=== PATIENT | male | born 1950 | race Caucasian/White ===

== ENCOUNTER 2019-04-05 09:33 | Inpatient (IN) | payer OTHER ==
[~2019-04-05] VITALS: Ht 172.7 cm; Wt 79.4 kg
--- NOTE | 2019-04-05 09:54 | NUR ---
PT ARRIVES WITH DYSPNEA WITH 02 SAT ON R.A. MID 80'2. PLACED ON 2L NC AND NOW 92%. PT HAS HX OF COPD. TOLERATING WELL AT THIS TIME. LUNGS HAVE INS AND EXP WHEEZING ON RIGHT SIDE AND EXP WHEEZING ON LEFT SIDE. PT TALKING IN SHORT SENTENCES. TOLERATING BETTER WHEN PLACED ON 02. DENIES CHEST PAIN OR PRESSURE. CLAIMS HE HAS PRODUCTIVE COUGH BUT UNKNOWN COLOR DUE TO SWALLOWING IT. PT IS ALERT AND ORIENTED WITH HR AT 121 UPON ARRIVAL. PT DENIES RECENT FEVER AND CLAIMS HE HAD SOB RECENTLY AND SEEN AT URGENT CARE, GIVEN A BREATHING TX WITH RESOLVE AND SENT HOME. AWAITING MD KOCH
--- NOTE | 2019-04-05 09:57 | NUR ---
ABG PERFORMED BY Fady AT BEDSIDE
[2019-04-05 10:11] LABS: BASOPHIL % 0 % (0-2); PLATELET COUNT 239 x10^3mcL (130-400); RED CELL DISTRIBUTION WIDTH 15.6 % (11.5-14.5)
--- NOTE | 2019-04-05 10:22 | NUR ---
DR HERRERA AT BEDSIDE FOR EVAL
--- NOTE | 2019-04-05 10:32 | NUR ---
Fady AT BEDSIDE FOR BREATHING TX
[2019-04-05 10:37] LABS: CALCIUM 9.1 mg/dL (8.5-10.1); CARBON DIOXIDE 22.9 mmol/L (21-32); POTASSIUM SERUM 4.8 mmol/L (3.5-5.1)
[2019-04-05 10:49] LABS: ALBUMIN 3.4 g/dL (3.4-5.0); BILIRUBIN TOTAL 0.6 mg/dL (0.20-1.00); TOTAL PROTEIN, SERUM 7.6 g/dL (6.4-8.2)
[2019-04-05] MEDS ORDERED: ASPIR 8181 MG PO (11:20)
[2019-04-05] MEDS ORDERED: NEU300 PO (11:20)
[2019-04-05] MEDS ORDERED: PROTONIX20 MG PO (11:21)
[2019-04-05] MEDS ORDERED: GLIPIZIDE2.5 M1 PO (11:21)
[2019-04-05] MEDS ORDERED: COR6 PO (11:21)
[2019-04-05] MEDS ORDERED: CLOPIDOGREL75 M1 PO (11:21)
[2019-04-05] MEDS ORDERED: LIPITOR80 MG PO (11:22)
--- NOTE | 2019-04-05 11:22 | NUR ---
BREATHING TX BY R.T. AT THIS TIME. PT TOLERATING WELL
--- NOTE | 2019-04-05 12:29 | NUR ---
REPORT GIVEN TO VIDA CALI RN
--- NOTE | 2019-04-05 14:15 | NUR ---
[facility] ACCOMPANIED BY RN AND TRANSPORTER. PT A/A/O X 4, CALM, COOPERATIVE. AMBULATORY, NO GAIT OR BALANCE IMPAIRMENT NOTED WHEN WALKING FROM [place] TO BED. ON TELE # 7, HR 104, ST, DENIES CHEST PAIN OR DISCOMFORT AT THIS TIME. LUNGS CTAB, CHEST RISING EVENLY, 2LNC, 95%, NO ACUTE RESPIRATORY DISTRESS NOTED. PT IS EDENTULOUS. IV SITE RAC 20G, CDI. ORIENTED PT TO ROOM, BED CONTROLS, CALL LIGHT SYSTEM. SIDE RAILS UP X 2, BED IN LOW POSITION. WILL CONTINUE TO MONITOR.
--- NOTE | 2019-04-05 15:15 | NUR ---
PT REFUSED LISINOPRIL D/T HIS PCP DC'D MED D/T HIS NORMAL BP READINGS; WILL NOTIFY DR RACHEL.
[2019-04-05 15:55] VITALS: BP 120/71
--- NOTE | 2019-04-05 16:54 | NUR ---
PAGED DR RACHEL RE: INCREASING TROPONIN LEVEL.
--- NOTE | 2019-04-05 17:40 | NUR ---
PT IN BED, WATCHING TV, WAITING FOR DINNER TO COME IN. PT STATES HE'S REALLY HUNGRY. ORIENTED X 4, CALM, COOPERATIVE. NO ACUTE RESPIRATORY DISTRESS, PAIN, OR DISCOMFORT NOTED. REMAINS ON 2LNC, IV SITE PATENT. SIDE RAILS UP X 2, BED IN LOW POSITION. WILL CONTINUE TO MONITOR.
--- NOTE | 2019-04-05 17:54 | NUR ---
DR RACHEL CALLED BACK; REPORTED INCREASED TROPONIN OF 0.214; GAVE ORDER FOR 3RD TROPONIN AT 2200; ORDER NOTED AND CARRIED OUT.
[2019-04-05 18:18] VITALS: BP 107/66
--- NOTE | 2019-04-05 19:40 | NUR ---
PT SITTING IN BED, WATCHING TV, LAUGHING. PT REMAINS A/A/O X 4, CALM, COOPERATIVE. ON TELE # 7, CONVERTED TO NSR IN THE MID-90'S, DENIES CHEST PAIN OR DISCOMFORT AT THIS TIME. REMAINS ON 2LNC, LUNGS CTAB, CHEST RISING EVENLY, 95%, NO ACUTE RESPIRATORY DISTRESS NOTED. IV SITE PATENT, NO S/S INFECTION OR BLEEDING. SIDE RAILS UP X 2, BED IN LOW POSITION, CALL LIGHT WITHIN REACH. WILL CONTINUE TO MONITOR.
[2019-04-05 20:43] VITALS: BP 105/72
--- NOTE | 2019-04-05 21:30 | NUR ---
RECEIVED PT FROM VIRAJ-MARNIE, PT ASLEEP BUT EASILY AROUSABLE, BREATHING EVEN AND UNLABORED ON O2 2L VIA NC, NO RESP OR SOB DISTRESS NOTED, ALL DUE MEDS GIVEN, NO DISTRESS NOTED, WILL KEEP TO MONITOR.
--- NOTE | 2019-04-05 23:40 | NUR ---
CRITICAL RESULT RECEIVED FOR PT'S TROP-0.205, DR DE SANTIAGO MADE AWARE. NO NEW ORDER RECEIVE AT THIS TIME.
[2019-04-06 05:49] VITALS: BP 100/73
--- NOTE | 2019-04-06 06:18 | NUR ---
PT ASLEEP BUT EASILY AROUSABLE, SLEPT MOST OF NIGHT, SL TO RAC, BREATHING EVEN AND UNLABORED ON O2 2L VIA NC, MILD SOB ON EXERTION, RT PROTOCOL, ON TELE#7 ST, NO DISTRESS NOTED, WILL KEEP TO MONITOR.
[2019-04-06 06:29] LABS: PLATELET COUNT 217 x10^3mcL (130-400)
[2019-04-06 06:41] LABS: CALCIUM 8.8 mg/dL (8.5-10.1); CARBON DIOXIDE 24.4 mmol/L (21-32); CREATININE SERUM 2.6 mg/dL (0.7-1.3); POTASSIUM SERUM 4.9 mmol/L (3.5-5.1)
[2019-04-06 06:51] LABS: BASOPHIL % 0 % (0-2); RED CELL DISTRIBUTION WIDTH 15.9 % (11.5-14.5)
--- NOTE | 2019-04-06 07:16 | NUR ---
BEDSIDE HANDOFF REPORT GIVEN TO TAHIRA, ALL QUESTIONS ANSWERED AND CONCERNS ADDRESSED.
--- NOTE | 2019-04-06 08:00 | NUR ---
RECEIVED PATIENT A/A/OX4; TELE#7; ST; HR = 110; DENIED CHEST PAIN. JASMYNE SOUND CLEAR, BUT DIMINISHED TO LLL. NO SOB. DRY COUGHING NOTED. RT PROTOCOL. FINISHED 100% OF [facility] DIET BREAKFAST. HAD BM THIS AM. IVHL'D TO RAC. PATIENT AMBULATORY, CALL LIGHT IN REACH.
[2019-04-06 09:44] VITALS: BP 103/73
[2019-04-06 09:47] VITALS: BP 103/73
[2019-04-06 13:11] VITALS: BP 105/81
--- NOTE | 2019-04-06 14:00 | NUR ---
DR. NEAL AND DR. AGUIRRE SAW PATIENT. NEW ORDERS CARRIED OUT.
[2019-04-06 15:18] LABS: UA SPECIFIC GRAVITY 1.025 (1.005-1.035); microscopic required? YES; urine erythrocyte 3+ (NEGATIVE)
--- NOTE | 2019-04-06 15:27 | NUR ---
CARDIAC ECHO DONE. POSSIBLE EF 25%. DR. NEAL NOTIFIED BY MANAGER REGULATORY.
[2019-04-06 18:19] VITALS: BP 118/94
--- NOTE | 2019-04-06 18:34 | NUR ---
PATIENT FINISHED 100% OF [place]. SLEEPING NOW. SLIGHT LABORED BREATHING. IVHL'D PER ORDER.
--- NOTE | 2019-04-06 19:15 | NUR ---
REPORT RECEIVED FROM DAY SHIFT RN. PATIENT WAS SEEN AND IS RESTING COMFORTABLY IN BED. BREATHING EVEN AND UNLABORED ON ROOM AIR. NO SOB OR RESP DISTRESS NOTED. PATIENT STATES "MY BREATHING IS MUCH BETTER NOW. IT USED TO BE LABORED, BUT NOW IT'S NOT. I DON'T NEED OXYGEN RN". EDUCATED PATIENT TO KEEP HOB ELEVATED TO OPEN UP HIS AIRWAYS AND PATIENT STATES HE DOES THAT ALREADY AND IT HAS BEEN HELPING HIS BREATHING. DENIES CHEST PAIN. TELE #7 SINUS TACH. NO C/O PAIN. IV TO THE RAC, SALINE LOCK. PATENT AND INTACT. NO REDNESS OR SWELLING NOTED. COMFORT AND SAFETY MEASURES IN PLACE. BED IS LOCKED AND IN THE LOWEST POSITION. SIDE RAILS UP X2. CALL LIGHT IS WITHIN REACH. WILL CONTINUE TO MONITOR.
[2019-04-06 21:03] VITALS: BP 115/81
--- NOTE | 2019-04-07 00:19 | NUR ---
PATIENT IS RESTING IN BED WITH EYES CLOSED. NO DISTRESS NOTED. BREATHING EVEN AND UNLABORED ON ROOM AIR. NO S/S OF PAIN NOTED. IV SALINE LOCK. SAFETY MEASURES IN PLACE. CALL LIGHT IS WITHIN REACH. WILL CONTINUE TO MONITOR.
--- NOTE | 2019-04-07 02:17 | NUR ---
TELE MONITOR REPORTED THAT HR WENT UP TO 120. PATIENT IS SITTING ON BEDSIDE CHAIR. DENIES CHEST PAIN. PATIENT STATES HIS BREATHING IS "OKAY". ASKED PATIENT IF HE WANTS A BREATHING TREATMENT AND PATIENT STATES HE DOES. PATIENT STATES HE DID NOT RECEIVING PATIENT TREATMENT EARLIER BECAUSE HE FELT LIKE HE DIDN'T NEED IT. RT CALLED AND WILL PROVIDE PATIENT WITH A BREATHING TREATMENT. NO RESP DISTRESS OR SOB NOTED. DENIES PAIN AT THIS TIME. IV SALINE LOCKED. SAFETY MEASURES IN PLACE. CALL LIGHT IS WITHIN REACH. WILL CONTINUE TO MONITOR.
--- NOTE | 2019-04-07 02:53 | NUR ---
HR AT 103. NO DISTRESS NOTED. BREATHING EVEN AND UNLABORED. NO SOB OR RESP DISTRESS NOTED. SAFETY MEASURES IN PLACE. WILL CONTINUE TO MONITOR.
[2019-04-07 05:16] VITALS: BP 123/98
--- NOTE | 2019-04-07 05:16 | NUR ---
PATIENT IS RESTING IN BED WITH EYES CLOSED AT THIS TIME. NO ACUTE CHANGES NOTED. BREATHING EVEN AND UNLABORED ON ROOM AIR. NO SOB OR RESP DISTRESS NOTED. NO C/O PAIN THROUGHOUT THE NIGHT OR CHEST PAIN/PRESSURE. IV TO THE RAC. SALINE LOCK. PATENT AND INTACT. NO REDNESS OR SWELLING NOTED. SAFETY MEASURES IN PLACE. BED IS LOCKED AND IN THE LOWEST POSITION. SIDE RAILS UP X2. CALL LIGHT IS WITHIN REACH. WILL CONTINUE TO MONITOR.
[2019-04-07 06:35] LABS: PLATELET COUNT 232 x10^3mcL (130-400)
[2019-04-07 06:49] LABS: BASOPHIL % 0 % (0-2); RED CELL DISTRIBUTION WIDTH 15.9 % (11.5-14.5)
--- NOTE | 2019-04-07 08:00 | NUR ---
SHIFT ASSESSMENT DONE. PATIENT A/A/OX4; NO RESP DSITRESS ON RA. BREATHING SOUND CLEAR EARNEST. O2 SAT 98% ON RA. RT PROTOCOL. TELE #7; SR; HR = 111. DENIED CHEST PAIN. TOLERATED CCHO DIET BREAKFAST. NO N/V. HAD BM THIS AM. IVHL'D TO RAC. AMBULATORY. CALL LIGHT IN REACH.
[2019-04-07 09:54] VITALS: BP 120/83
[2019-04-07 10:25] LABS: CALCIUM 8.7 mg/dL (8.5-10.1); CARBON DIOXIDE 18.5 mmol/L (21-32); CREATININE SERUM 2.5 mg/dL (0.7-1.3); POTASSIUM SERUM 4.8 mmol/L (3.5-5.1)
[2019-04-07 12:54] VITALS: BP 119/93
[2019-04-07 18:28] VITALS: BP 128/91
--- NOTE | 2019-04-07 19:00 | NUR ---
CONDITION IMPROVING. NO RESP DISTRESS ON RA. DENIED PAIN. VÍCTOR'D. VOID VIA URINAL. BM X2. ENDORSED CARE TO NOC NURSE.
--- NOTE | 2019-04-07 19:10 | NUR ---
RECEIVED PT SITTING UP ON SIDE OD BED, NO ACUTE DISTRESS OBSERVED, DENIES PAIN OR DISCOMFORT AT THIS TIME. BREATHING ON RA, EVEN AND UNLABORED, DENIES SOB OR DYSPNEA, LUNGS CTA, O2 SAT 97% AA/OX4, ABLE TO MAKE NEEDS KNOWN, SPEECH CLEAR AND APPROPRIATE. SINUS TACH TO TELE #7, HR 104, DENIES CP OR PRESSURE. PULSES PRESENT AND EQUAL THROUGHOUT, NO EDEMA NOTED. ABD ROUND AND SOFT WITH ACTIVE BOWEL SOUNDS, NO N/V/D. FREELY VOIDS URINE WITH BRP. AMBULATORY AND ABLE TO REPOSITION SELF IN BED. IV TO RAC IN PLACE, DRY, PATENT, INTACT, S/L AT THIS TIME, NO PAIN, REDNESS OR SWELLING NOTED WHEN FLUSHED WITH NS. COMFORT AND SAFETY MEASURES IN PLACE, ALL NEEDS ASSESSED AND ATTENDED TO. CALL LIGHT WITHIN REACH. WILL CONTINUE TO MONITOR
[2019-04-07 20:34] VITALS: BP 130/82
--- NOTE | 2019-04-07 23:50 | NUR ---
PT LAYING IN BED, BREATHING EVEN AND UNLABORED, NO ACUTE DISTRESS OBSERVED. CALL LIGHT WITHIN REACH. WILL CONTINUE TO MONITOR
--- NOTE | 2019-04-08 05:08 | NUR ---
NO SIGNIFICANT CHANGES TO REPORT, PT COMPLIED WITH NURSING CARE THROUGHOUT THE SHIFT WITH NO ACUTE EVENTS OVERNIGHT. PT TOLERATING WELL ON RA, BREATHING EVEN AND UNLABORED, NO ACUTE DISTRESS OBSERVED. COMFORT AND SAFETY MEASURES MAINTAINED. ALL NEEDS ASSESSED AND ATTENDED TO. CALL LIGHT WITHIN REACH. WILL CONTINUE TO MONITOR AND ENDORSE CARE TO DAY SHIFT NURSE
[2019-04-08 05:37] VITALS: BP 116/86
[2019-04-08 06:47] LABS: PLATELET COUNT 241 x10^3mcL (130-400)
[2019-04-08 06:55] LABS: BASOPHIL % 0 % (0-2); RED CELL DISTRIBUTION WIDTH 15.8 % (11.5-14.5)
[2019-04-08 07:18] LABS: CALCIUM 8.9 mg/dL (8.5-10.1); CREATININE SERUM 2.3 mg/dL (0.7-1.3); POTASSIUM SERUM 5.2 mmol/L (3.5-5.1)
--- NOTE | 2019-04-08 07:49 | NUR ---
RECEIVED PATIENT FROM MARNIE DIAZ. PATIENT RESTING IN BED AT THIS TIME, NO COMPLAINTS. REVIEWED PLAN OF CARE WITH PATIENT FOR TODAY, PATIENT AGREES. WILL CONTINUE TO MONITOR AND WAIT FOR WELLNESS COACH CHANELLE TO SPEAK WITH PATIENT. CALL LIGHT IN REACH AT THIS TIME.
[2019-04-08 08:21] VITALS: BP 125/74
--- NOTE | 2019-04-08 08:49 | NUR ---
PLASTER TENDER CHANELLE IN TO SPEAK WITH PATIENT. STATES PATIENT WILL BE DISCHARGED HOME TODAY. PATIENT UNDERSTANDS. SPOKE WITH PATIENT ABOUT DISCHARGE PROCESS AND PATIENT AGREES. WILL COMPILE DISCHARGE PACKET AND PAPER WORK ONCE COMPLETE BY NIKKIE ROCA. CALL LIGHT IN REACH.
[2019-04-08] MEDS ORDERED: ZIT250 PO (10:19)
[2019-04-08] MEDS ORDERED: PREDNISONE20 MG PO (10:20)
[2019-04-08 11:12] VITALS: BP 125/74
[2019-04-08 11:59] VITALS: BP 108/83
--- NOTE | 2019-04-08 12:51 | NUR ---
DISCHARGE PACKET EXPLAINED AND GIVEN TO PATIENT. ALL QUESTIONS ANSWERED. PRESCRIPTION GIVEN TO PATIENT. DISCHARGE DOCUMENTS SIGNED AND DATED, IV ACCESS REMOVED AND INTACT. TELE MONITOR RETURNED TO [facility]. PATIENT WITH PACKET AND BELONGINGS ESCORTED DOWNSTAIRS VIA WHEELCHAIR WITH LEONA FRIEDMAN.
== END 2019-04-08 12:52 | disposition home or self-care (01) | DRG 280 ==
LOC: ED 09:33 → DU 12:03
PROVIDERS: Internal Medicine Nephrology; ADMIT General Practice
DX: I13.0 Hypertensive heart and chronic kidney disease with heart failure and stage 1 through stage 4 chronic kidney disease, or unspecified chronic kidney disease (principal); J96.21 Acute and chronic respiratory failure with hypoxia; I21.A1 Myocardial infarction type 2; J44.1 Chronic obstructive pulmonary disease with (acute) exacerbation; I50.22 Chronic systolic (congestive) heart failure; E11.21 Type 2 diabetes mellitus with diabetic nephropathy; N18.3 Chronic kidney disease, stage 3 (moderate); E11.22 Type 2 diabetes mellitus with diabetic chronic kidney disease; I25.5 Ischemic cardiomyopathy; K21.9 Gastro-esophageal reflux disease without esophagitis; N40.0 Benign prostatic hyperplasia without lower urinary tract symptoms; I25.10 Atherosclerotic heart disease of native coronary artery without angina pectoris; E78.5 Hyperlipidemia, unspecified; Z87.891 Personal history of nicotine dependence; Z95.5 Presence of coronary angioplasty implant and graft; Z79.84 Long term (current) use of oral hypoglycemic drugs
CPT/HCPCS: 36600; 82962; 83880; G0378; J0456; J1815; J2930; J7030; J7050; J7512; J7613; J7620; J7626; Q0092

== ENCOUNTER 2019-05-14 18:01 | Inpatient (IN) | payer OTHER ==
[~2019-05-14] VITALS: Ht 177.8 cm; Wt 81.6 kg
[~2019-05-14 18:01] MED LIST: ASPIR 8181 MG PO; CLOPIDOGREL75 M1 PO; COR6 PO; GLIPIZIDE2.5 M1 PO; LIPITOR80 MG PO; NEU300 PO; PREDNISONE20 MG PO; PROTONIX20 MG PO; ZIT250 PO
[2019-05-14 18:05] VITALS: Ht 177.8 cm; Wt 81.6 kg
--- NOTE | 2019-05-14 18:10 | NUR ---
PT C/O SOB X2 DAYS PT STS HX COPD AND CHF, PER PT "I ONLY GOT MAILED HALF OF MY COPD MEDS AND THEY HAVEN'T SENT MY BREATHING TREATMENT YET" PT DENIES SMOKING STATING "I QUIT 2 MONTHS AGO" PT DENIES ANY FEVER AND CHILLS AT THIS TIME AND/OR CHEST PAIN, PT AAOX4, RESPS EVEN BUT LABORED, PT ABLE TO SPEAK 3-4 WORDS AT A TIME, PT ABLE TO SPEAK 3-4 SENTENCES, INCREASED EXPIRATORY BREATHING NOTED, SKIN PINK DRY AND WARM, MILD SWELLING TO BLE NOTED. PT GOWNED AND PLACED ON FULL CM, SINUS TACYCARDIA, AWAITING MSE.
--- NOTE | 2019-05-14 18:10 | NUR ---
RT CALLED TO BEDSIDE
--- NOTE | 2019-05-14 19:10 | NUR ---
REPORT GIVEN TO RADHA CARLSON RN WHO IS RESUMING CARE OF PT AT THIS TIME
--- NOTE | 2019-05-14 19:11 | NUR ---
RECEIVED REPORT FROM BRENT JACOB RN, I WILL BE ASSUMING FURTHER CARE OF THIS PATIENT.
--- NOTE | 2019-05-14 19:15 | NUR ---
RT AT BEDSIDE. BREATHING TREATMENT IN PROGRESS. PT ON BIPAP. NO DISTRESS NOTED, RESP E/U AT THIS TIME, SKIN IS PINK WARM AND DRY. PT ON FULL CM, SINUS TACHYCARDIA, MD AWARE. WILL CONT TO MONITOR.
--- NOTE | 2019-05-14 19:49 | NUR ---
EMT AT BEDSIDE FOR EKG
[2019-05-14 19:54] LABS: BILIRUBIN TOTAL 0.6 mg/dL (0.20-1.00); CALCIUM 8.1 mg/dL (8.5-10.1); CARBON DIOXIDE 22.6 mmol/L (21-32); CREATININE SERUM 2.3 mg/dL (0.7-1.3); POTASSIUM SERUM 4.7 mmol/L (3.5-5.1)
[2019-05-14 19:59] LABS: ALBUMIN 3.1 g/dL (3.4-5.0)
[2019-05-14 20:01] LABS: BASOPHIL % 0.2 % (0-2); PLATELET COUNT 185 x10^3mcL (130-400)
[2019-05-14 20:11] LABS: RED CELL DISTRIBUTION WIDTH 15.6 % (11.5-14.5)
--- NOTE | 2019-05-14 21:25 | NUR ---
RT AT BEDSIDE PLACING PT ON 3L O2 VIA NC
--- NOTE | 2019-05-14 21:30 | NUR ---
MEDICATED PT PER MD ORDERS, SEE EMAR, PT VERBALIZED UNDERSTANDING OF MEDICATION TEACHING. WILL CONT TO MONITOR.
--- NOTE | 2019-05-14 21:35 | NUR ---
PT GIVEN SANDWICH, PUDDING AND WATER TO DRINK PER OPT REQUEST. OK PER .
--- NOTE | 2019-05-14 21:50 | NUR ---
PT ATE 100% OF FOOD OFFERED AND 90ML WATER.
[2019-05-14] MEDS ORDERED: PROTONIX40 MG PO (22:16)
--- NOTE | 2019-05-14 22:30 | NUR ---
GAVE REPORT TO MYRIAM DYE ON TELE UNIT, WHO WILL ASSUME FURHTER CARE OF THIS PATIENT.
[2019-05-14 22:37] LABS: CHOLESTEROL/HDL RATIO 4.5
[2019-05-14 23:11] LABS: microscopic required? YES; urine erythrocyte 2+ (NEGATIVE)
[2019-05-14 23:27] LABS: AMPHETAMINE QUAL UR POSITIVE (See below)
[2019-05-14 23:45] VITALS: BP 119/73
[2019-05-14 23:54] VITALS: BP 119/73
--- NOTE | 2019-05-15 00:06 | NUR ---
RECEIVED PT FROM ER, PT ADMIT FOR HEART FAILURE, COPD EXCERBATION, PT IS A/O X4, VERBAL RESPONSIVE, ABLE TO TELL WHAT HE NEEDS. LUNG SOUND CLEAR EARNEST, DENY ANY SOB AT THIS MOMENT, PT IS ON 3L/MIN O2 VIA NC. PO2 96, PT IS ON TELE 8, ST, DENY ANY CHEST PAIN OR DISCOMFORT, BOWEL SOUND PRESENT ALL 4 QUADRANTS, NO DISTENTION, NO TENDER. PEDAL PULSE PRESENT BOTH FEET, +1 EDEMA BLE NOTED. IV AT RIGHT AC, NO LEAKING,NO INFILTRAITON. ALL ADLS ASSIST, ALL NEED MET, CALL LIGHT IN REACH, WILL CONTINUE TO MONITOR.
--- NOTE | 2019-05-15 00:45 | NUR ---
PT AWAKE, DOESNT WANT TO WEAR HOSP GOWN OFFERED TO TURN AIRCON UP BUT HE STATED HIS FINE, NO DISTRESS, DR DE SANTIAGO MADE AWARE PT FELT BLOATED AND HAVING CONSTIPATION, HAS BM X1 BUT JUST A SMALL AMT, AWAITING FOR ORDERS.
[2019-05-15 05:45] VITALS: BP 110/78
--- NOTE | 2019-05-15 07:15 | NUR ---
PNEUMOVACCINE ADMIN @ LT ARM, PT SLEPT WELL DURING THE SHIFT, NO DISTRESS, DENIES PAIN OR DISCOMFORTS, SR IN THE MONITOR, WILL ENDORSE TO INCOMING SHIFT FOR F/U CARE.
--- NOTE | 2019-05-15 07:35 | NUR ---
PATIENT A/OX4 ABLE TO MAKE NEEDS KNOWN AND FOLLOW COMMANDS. DENIES HEADACHE OR CHEST PAIN. LUNGS CTA, NO RESP DISTRESS ON 3L NC, OCC DRY COUGH NOTED. BOWEL SOUNDS ACTIVE, ABD DISTENTION/BLOATING NOTED. VOIDS FREELY TO URINAL. IV SITE WNL, DENIES PAIN OR DISCOMFORT. CALL LIGHT WITHIN REACH. WILL CONT TO MONITOR.
--- NOTE | 2019-05-15 07:35 | NUR ---
PATIENT A/OX4 ABLE TO MAKE NEEDS KNOWN AND FOLLOW COMMANDS. DENIES HEADACHE OR CHEST PAIN. LUNGS CTA, NO RESP DISTRESS ON RA, OCC DRY COUGH NOTED. BOWEL SOUNDS ACTIVE, ABD DISTENTION/BLOATING NOTED. VOIDS FREELY TO URINAL. IV SITE WNL, DENIES PAIN OR DISCOMFORT. CALL LIGHT WITHIN REACH. WILL CONT TO MONITOR.
[2019-05-15 08:50] LABS: BASOPHIL % 0.1 % (0-2); PLATELET COUNT 204 x10^3mcL (130-400)
[2019-05-15 08:51] LABS: RED CELL DISTRIBUTION WIDTH 15.4 % (11.5-14.5)
[2019-05-15 09:04] LABS: CALCIUM 8.8 mg/dL (8.5-10.1); CARBON DIOXIDE 24.1 mmol/L (21-32); CREATININE SERUM 2.6 mg/dL (0.7-1.3); MAGNESIUM 2.3 mg/dL (1.8-2.4); POTASSIUM SERUM 4.2 mmol/L (3.5-5.1)
[2019-05-15 09:23] VITALS: BP 117/69
[2019-05-15 13:06] VITALS: BP 99/72
--- NOTE | 2019-05-15 15:32 | NUR ---
PATIENT TOLERATING RA, O2 SAT 96%. WILL CONT TO MONITOR AND ADVISED PATIENT TO USE CALL LIGHT IF FEELING SOB.
[2019-05-15 17:13] VITALS: BP 102/73
--- NOTE | 2019-05-15 19:34 | NUR ---
RECIEVED PATIENT AT START OF SHIFT A/O X4. ON TELE 8, NSR 85. NO SOB ON RA. LUNGS CTAB. DENIES PAIN. ABDOMEN IS FIRM AND DISTENDED. BS HYPERACTIVE. FLUID RESTRICTION IN PLACE <1200/DAY. NO EDEMA NOTED TO EXTREMETIES. IV TO RAC IS SALINE LOCKED AND PATENT. CALL LIGHT AND BEDSIDE TABLE WITHIN REACH.
[2019-05-15 20:51] VITALS: BP 93/62
--- NOTE | 2019-05-16 01:00 | NUR ---
PATIENT'S EYES ARE CLOSED, BREATHS EVEN AND REGULAR. TELE 8 NSR 84. CALL LIGHT AND BEDSIDE TABLE WITHIN REACH.
[2019-05-16 05:03] VITALS: BP 103/78
--- NOTE | 2019-05-16 06:33 | NUR ---
PATIENT IS AWAKE. NO SOB ON RA. DENIES PAIN. STATES HE STILL HAS NOT HAD A BM DESPITE THE [place] AND [place]. ABDOMEN STILL FIRM AND DISTENDED. IV TO RAC SALINE LOCKED. BED LOCKED AND IN LOWEST POSIITON. CALL LIGHT AND BEDSIDE TABLE WITHIN REACH.WILL ENDORSE CARE TO DAYSHIFT.
[2019-05-16 06:35] LABS: CALCIUM 8.7 mg/dL (8.5-10.1); CREATININE SERUM 2.7 mg/dL (0.7-1.3); MAGNESIUM 2.5 mg/dL (1.8-2.4); PHOSPHOROUS 4.3 mg/dL (2.5-4.9); POTASSIUM SERUM 4.5 mmol/L (3.5-5.1)
--- NOTE | 2019-05-16 07:20 | NUR ---
RECEIVED PT FROM MEGGAN DE JESUS. PT AA/OX4 LAYING IN BED RESTING. EASILY AROUSABLE TO VERBAL STIMULI. FACE SYMMETRICAL. SPEECH CLEAR. NO TAYLOR. NO DIZZINESS. DENIES SOB ON ROOM AIR. DENIES CHEST PAIN. COMPLAINT OF ABDOMINAL EDEMA, ABD. HARD, ROUND, DISTENDED. PT REPORTS PASSING GAS THIS AM. REPORTS CONSTIPATION. DENIES N/V. NO SWELLING NOTED BUE/BLE. PULSES +2 BUE/BLE. NORMAL SINUS TACH ON TELE 8, HR 102. IV WNL TO RAC, PATENT AND FLUSHES WELL. PT CALM/COOPERATIVE. INSTRUCTED TO USE CALL LIGHT TO CALL FOR ASSISTANCE PRN. VERBALIZED UNDERSTANDING. BED IN LOW POSITION. CALL LIGHT WITHIN REACH. WILL CONTINUE TO MONITOR.
[2019-05-16 08:00] LABS: BASOPHIL % 0.3 % (0-2); PLATELET COUNT 194 x10^3mcL (130-400); RED CELL DISTRIBUTION WIDTH 15.6 % (11.5-14.5)
[2019-05-16 08:43] VITALS: BP 106/70
--- NOTE | 2019-05-16 10:47 | NUR ---
PT COMPLAINT OF CHEST PAIN, LEFT SIDE, NON-RADIATING, NON-REPRODUCIBLE. DESCRIBES PRESSURE. NSR ON TELE. DENIES SOB ON ROOM AIR. RATES PAIN 12/22, CLINICAL TECHNOLOGIST CARMEN MADE AWARE, ONLY PAIN MEDICATION AVAILABLE TYLENOL, PT DECLINED TO TYLENOL, CLINICAL TECHNOLOGIST AWARE. RECEIVED TELEPHONE ORDER FOR STAT EKG PER NIKKIE LARKIN. ORDER ENTERED. WILL CONTINUE TO MONITOR CLOSELY.
--- NOTE | 2019-05-16 10:51 | NUR ---
PT REPOSITIONED SELF TO LEFT SIDE, REPORTS PAIN DECREASING, REPORTS PAIN MORE TOLERABLE AT THIS TIME. NSR/SINUS TACH ON TELE. HR RANGES BETWEEN 90-102
[2019-05-16 11:53] VITALS: BP 94/68
--- NOTE | 2019-05-16 12:17 | NUR ---
PT SITTING UP IN BED EATING LUNCH. DENIES CHEST PAIN AT THIS TIME. NO SOB ON ROOM AIR. NO S/S OF ACUTE DISTRESS. CALM/COOPERATIVE. IV WNL TO RAC, PATENT AND FLUSHES WELL. SALINE LOCKED. AA/OX4. BED IN LOW POSITION. CALL LIGHT WITHIN REACH. WILL CONTINUE TO MONITOR.
--- NOTE | 2019-05-16 17:04 | NUR ---
PT LEFT AMA VOLUNTARILY WITHOUT BEING SEEN BY A PHYSICIAN. BATTERY REPAIRER CARMEN AWARE. PT AGITATED, WANTS TO GO HOME. IV REMOVED FROM RAC, CATHETER IN TACT. PRESSURE APPLIED. RENEWABLE ENERGY BROKERMARNIE FERNANDO. PT ESCORTED TO LOBBY BY MACHELLE LUZ. PT AMBULATORY WITH FULL ROM, GAIT STEADY. NO S/S OF ACUTE DISTRESS. NO SOB ON ROOM AIR. DENIES CHEST PAIN. AWAKE, ALERT, ORIENTED X4. NO S/S OF ACUTE DISTRESS. EDUCATED PT TO FOLLOW UP WITH ENVIRONMENTAL SERVICES PROJECT MANAGER, PURPOSE OF MEDICATIONS. PT VERBALIZED UNDERSTANDING. AGREED TO FOLLOW UP WITH ENVIRONMENTAL SERVICES PROJECT MANAGER. NO TAYLOR. NO DIZZINESS. NO N/V. BELONGINGS WITH PATIENT.
== END 2019-05-16 17:00 | disposition left against medical advice (07) | DRG 291 ==
LOC: ED 18:01 → DU 21:51 → MU 05-16 14:37
PROVIDERS: Emergency Medicine; ADMIT Internal Medicine
DX: I13.0 Hypertensive heart and chronic kidney disease with heart failure and stage 1 through stage 4 chronic kidney disease, or unspecified chronic kidney disease (principal); I50.23 Acute on chronic systolic (congestive) heart failure; J96.01 Acute respiratory failure with hypoxia; J80 Acute respiratory distress syndrome; N17.0 Acute kidney failure with tubular necrosis; E44.0 Moderate protein-calorie malnutrition; I42.9 Cardiomyopathy, unspecified; F15.10 Other stimulant abuse, uncomplicated; F12.10 Cannabis abuse, uncomplicated; I27.20 Pulmonary hypertension, unspecified; I34.0 Nonrheumatic mitral (valve) insufficiency; N18.9 Chronic kidney disease, unspecified; E11.22 Type 2 diabetes mellitus with diabetic chronic kidney disease; E11.65 Type 2 diabetes mellitus with hyperglycemia; E83.51 Hypocalcemia; I25.10 Atherosclerotic heart disease of native coronary artery without angina pectoris; E78.5 Hyperlipidemia, unspecified; J44.9 Chronic obstructive pulmonary disease, unspecified; N40.0 Benign prostatic hyperplasia without lower urinary tract symptoms; D64.9 Anemia, unspecified; Z68.24 Body mass index [BMI] 24.0-24.9, adult; Z71.51 Drug abuse counseling and surveillance of drug abuser; Z87.891 Personal history of nicotine dependence
CPT/HCPCS: 36600; 82962; 83880; 90732; C9113; G0378; J1885; J1940; J2930; J3475; J7613; J7644; Q0092

== ENCOUNTER 2019-07-14 09:57 | Inpatient (IN) | payer OTHER ==
[~2019-07-14] VITALS: Ht 177.8 cm; Wt 83.9 kg
[~2019-07-14 09:57] MED LIST changes: +PROTONIX40 MG PO
--- NOTE | 2019-07-14 10:08 | NUR ---
PLACED IN BED 2A FOR EVAL AND BEDSIDE TRIAGING BY PRIMARY RN DOLORESG.
--- NOTE | 2019-07-14 10:20 | NUR ---
er at bedside for evaluations/assessments.monitors on.shelia arredondo.adult male family/freind bedside.awaits reevaluations.chf sx's since last thursday worsed today.
--- NOTE | 2019-07-14 10:47 | NUR ---
IV ACCESS STARTED ASEPTICALLY WITH BLOOD DRAWN/SENT TO LAB,FLUSHED WITH NS.PT TOLERATED PROCEDURES WITH NO INCIDENTS.AWAITS TEST RESULTS,REEVALUATIONS.monitors on.
[2019-07-14 10:51] LABS: microscopic required? NO
[2019-07-14 11:02] LABS: BASOPHIL % 0.3 % (0-2); PLATELET COUNT 210 x10^3mcL (130-400); RED CELL DISTRIBUTION WIDTH 14.4 % (11.5-14.5)
[2019-07-14 11:05] LABS: urine erythrocyte NEGATIVE (NEGATIVE)
--- NOTE | 2019-07-14 11:29 | NUR ---
RESTING ASLEEP ON HIS rt side er 2ta hob @ 30 degrees sr up,monitors on,nad.adult brother bedside.awaits reevaluations.
[2019-07-14 11:52] LABS: CALCIUM 8.7 mg/dL (8.5-10.1); CARBON DIOXIDE 29.9 mmol/L (21-32); POTASSIUM SERUM 3.7 mmol/L (3.5-5.1)
--- NOTE | 2019-07-14 11:55 | NUR ---
PT WOKE UP TO USE URINAL WITH GOOD RELIEF.KODY GARCIA.MONITORS ON.ADULT BROTHER BEDSIDE.AWAITS REEVALUATIONS.
[2019-07-14 12:04] LABS: ALBUMIN 3.8 g/dL (3.4-5.0); BILIRUBIN TOTAL 0.5 mg/dL (0.20-1.00)
[2019-07-14 12:08] LABS: TOTAL PROTEIN, SERUM 8.5 g/dL (6.4-8.2)
--- NOTE | 2019-07-14 13:19 | NUR ---
pt endorsed to/accepted by [facility].awaits transport services,reevaluations.
[2019-07-14 13:40] VITALS: BP 139/76
--- NOTE | 2019-07-14 16:24 | NUR ---
1420 PATIENT ADMITTED TO FLOOR, FAMILY AT BEDSIDE, ANSWERED QUESTIONS APPROPRIATELY, BLOOD GLUCOSE CHECK DONE, SANDWICH AND WATER OFFERED, MEDICATED, PATIENT STATES HE IS TIRED AND WANTS TO REST. RESTING IN BED COMFORTABLY. WILL CONTINUE TO MONITOR.
--- NOTE | 2019-07-14 16:25 | NUR ---
PATIENT REQUESTED PNA VACCINE, ADMINISTERED RIGHT ARM, IV ANTIBIOTICS INFUSING, WILL CONTINUE TO MONITOR.
[2019-07-14 16:51] VITALS: BP 112/74
--- NOTE | 2019-07-14 17:43 | NUR ---
PATIENT ATE 100% DINNER IV SALINE LOCKED, DENIES ANY NEEDS. WILL CONTINUE TO MONITOR
--- NOTE | 2019-07-14 19:36 | NUR ---
PT ALERT AND ORIENTED X3. ABLE TO VERBALIZE NEEDS. DENIES PAIN. SOB WITH EXERTION. DENIES NEEDS AT THIS TIME. BED IN LOW POSITION WTIH CALL LIGHT IN REACH. BED ALARM ON.
[2019-07-14 20:40] VITALS: BP 113/72
--- NOTE | 2019-07-15 01:50 | NUR ---
DR. BELTRAN INFORMED OF PT C/O INSOMNIA AND TAYLOR.
[2019-07-15 05:45] VITALS: BP 100/67
[2019-07-15 06:20] LABS: CALCIUM 8.2 mg/dL (8.5-10.1); CARBON DIOXIDE 25.6 mmol/L (21-32); CREATININE SERUM 3.1 mg/dL (0.7-1.3)
--- NOTE | 2019-07-15 06:27 | NUR ---
NSR ON MONITOR. VSS, A AND O X4. DENIES PAIN. RT CALLED FOR BREATHING TX.BED IN LOW POSITION WITH CALL LIGHT IN REACH. BED ALARM ON. REPORT GIVEN TO MARNIE LEE
--- NOTE | 2019-07-15 07:15 | NUR ---
BEDSIDE REPORT AND INTROUDCTION PERFORMED WITH INCOMING NURSE FRANK.
--- NOTE | 2019-07-15 07:30 | NUR ---
PT IS AAOX4. TELE [address] READING NSR. IV CATH TO [facility] SITE WNL. 02 2 LPM N/C IN PLACE. PT DENIES PAIN AT THIS TIME. CALL LIGHT WITHIN REACH.
--- NOTE | 2019-07-15 08:20 | NUR ---
CHANELLE CANCHOLA NP MET WITH PT AND DISCUSSED POC. PT IS TO HAVE AT PULMONARY CONSULT AND WILL BE ASSESSED BY INTERNAL MEDICINE PHYSICIAN ASSISTANT. PT AGREED WITH POC.
--- NOTE | 2019-07-15 08:58 | NUR ---
DR. FOX MET WITH PT AND DISCUSSED POC. PT IS TO REMAIN NO R/T PROTOCOL AND CONTINUE SOLUMEDROL. TO BE RE-EVALUATED TOMORROW. PT AGREED WITH POC.
--- NOTE | 2019-07-15 09:10 | NUR ---
CHANELLE CANCHOLA NP MET WITH PT AND DISCUSSED POC. PT IS TO HAVE AT PULMONARY CONSULT. CARDIAC ENZYMES NEGATIVE, C/P MOST LIKELY DUE TO WHEEZING. PT TO START IV ABX TO PREVENT PNEUMONIA. PT AGREED WITH POC.
--- NOTE | 2019-07-15 09:22 | NUR ---
SCHEDULED MEDS GIVEN AND TOLERATED WELL. B/P 116/73, HR 105. PT DENIES C/P, PRESSURE AND PALPITATIONS. RESP SHALLOW WITH SOB. PT POSITIONED TO HIGH FOWLERS. CALL LIGHT WITHIN REACH.
[2019-07-15 09:41] VITALS: BP 116/73
--- NOTE | 2019-07-15 10:30 | NUR ---
CHANELLE CANCHOLA NP MADE AWARE PT HAS HOME MEDS LASIX AND FLOMAX THAT NEED TO BE RECONCILED. CHANELLE STATED SHE WILL ADD THEM TO THE PT'S ORDERED MEDS. PT MADE AWARE.
[2019-07-15 11:22] LABS: BASOPHIL % 0.1 % (0-2); PLATELET COUNT 182 x10^3mcL (130-400); RED CELL DISTRIBUTION WIDTH 13.7 % (11.5-14.5)
--- NOTE | 2019-07-15 11:49 | NUR ---
SCHEDULED MED GIVEN AND TOLERATED WELL. PT HAS INCREASED SOB. POSTIONED TO HIGH FOWLWERS. CONTACTED R/T TO GIVE PT BREATHING TX. R/T STATED THEY MEET WITH PT SOON. PT MADE AWARE. PT DENIES C/P AND PRESSURE. CALL LIGHT WITHIN REACH. PT'S 2 BROTHER'S AT BEDSIDE.
[2019-07-15 12:14] VITALS: BP 94/68
--- NOTE | 2019-07-15 12:28 | NUR ---
SCHEDULED MED GIVEN. PT EATTING LUNCH IN BED AT THIS TIME. PT REFUSED BREATHING TX UNTIL AFTER LUNCH IS COMPLETED. PT DENIES PAIN. WILL CONTINUE TO MONITOR. CALL LIGHT WITHIN REACH.
--- NOTE | 2019-07-15 15:23 | NUR ---
SCHEDULED MEDS GIVEN AND TOLERATED WELL. PT ASSISTED WITH BED BATH AND GOWN CHANGE. PT DENIES PAIN AT THIS TIME. CALL LIGHT WITHIN REACH.
[2019-07-15 18:07] VITALS: BP 103/76
--- NOTE | 2019-07-15 18:07 | NUR ---
PT IS HAVING DIFFICULTY BREATHING. RAISED HOB, INCREASED 02 N/C TO 5 LPM. O2 SAT IS 98%. PT IS SINUS TACH 110 BPM ON HEART MONITOR. CONTACTED CHEO CANCHOLA NP AND RECEIVED ORDER FOR DUONEB Q 4 HOURS PRN, CHEST XRAY ON 07/16. ORDERS NOTED AND CARRIED OUT.
--- NOTE | 2019-07-15 18:37 | NUR ---
PT IS AAOX4. BREATHING TX HAS RELIEVED SOB. PT ON O2 N/C AT 2LPM. IV CATH TO RAC. SITE WNL. PT DEINIES PAIN. TELE [address] READING SINUS TACH 105. CALL LIGHT WITHIN REACH. WILL ENDORSE ALL CARE TO MEGGAN DYE.
--- NOTE | 2019-07-15 19:56 | NUR ---
PT RECIEVED AAO REG RESP WITH AUDIBLE WHEEZING ON 2L N/C SAT 97%,CLEAR TO ALL LUNG LYNN ON AUSCULTATION,PT BEING ENCOURAGE TO USE THE INCENTIVE SPIROMETER,V/S STABLE,HL TO SITE INTACT,HOB,BED IN THE LOW POSITION AND LOCKED,KEPT CLEAN AND DRY TO TOUCH,CALL LIGHT EASY REACHED,WILL CONTINUE TO MONITOR.
[2019-07-15 20:17] VITALS: BP 111/72
--- NOTE | 2019-07-15 23:14 | NUR ---
PT SLEEPING SOUNDLY AND WILL CONTINUE TO MONITOR.
--- NOTE | 2019-07-16 00:11 | NUR ---
PT SITTING UP ON THE BED AND WITH ANXIETY AND SOB,PT HAVING RESPIRATORY TREAMENT AND ALSO SAYS WANT SOME SLEEP MEDS, PT HAD ATIVAN 1 MG PO EARLY SAYS NOT WORKING,MADE THE RESIDENT AWARE OF THAT AND LOOKING UP FOR ANY ORDERS.WILL CONTINUE TO MONITOR.
[2019-07-16 05:42] VITALS: BP 122/86
[2019-07-16 06:08] LABS: CALCIUM 8.2 mg/dL (8.5-10.1); CARBON DIOXIDE 26.6 mmol/L (21-32); CREATININE SERUM 2.9 mg/dL (0.7-1.3); POTASSIUM SERUM 4.1 mmol/L (3.5-5.1)
--- NOTE | 2019-07-16 06:35 | NUR ---
PT HAD A RESTING NIGHT NO CHANGE AT THIS MARIA ISABEL AND WILL CONTINUE TO MONITOR.
[2019-07-16 06:45] LABS: BASOPHIL % 0.1 % (0-2); PLATELET COUNT 191 x10^3mcL (130-400); RED CELL DISTRIBUTION WIDTH 14.2 % (11.5-14.5)
--- NOTE | 2019-07-16 07:25 | NUR ---
PT IS AAOX4. LUNG SOUNDS DIMINISHED BILATERAL BASES WITH EXPIRATORY WHEEZE NOTED TO UPPER BASES. PT HAS NON PRODUCTIVE COUGH AND SOB. O2 N/C AT 2LPM IN PLACE. TELE [address] READING SINUS TACH 114. IV N/S LOCKED TO RAC. SITE WNL. PT DENIES PAIN AT THIS TIME. FALL PROTOCOL FOLLOWED. BED ALARM ON. BED IN LOWEST POSITION. CALL LIGHT WITHIN REACH.
--- NOTE | 2019-07-16 07:25 | NUR ---
PT IS AAOX4. LUNG SOUNDS DIMINISHED BILATERAL BASES WITH EXPIRATORY WHEEZE NOTED TO UPPER BASES. PT HAS NON PRODUCTIVE COUGH AND SOB. O2 N/C AT 2LPM IN PLACE. TELE Y IN PLACE READING SINUS TACH 114. IV N/S LOCKED TO RAC. SITE WNL. PT DENIES PAIN AT THIS TIME. FALL PROTOCOL FOLLOWED. BED ALARM ON. BED IN LOWEST POSITION. CALL LIGHT WITHIN REACH.
--- NOTE | 2019-07-16 07:50 | NUR ---
REPORTED TO CHAENLLE CANCHOLA NP THAT PT'S BUN IS 72 AND PT'S ABDOMEN IS DISTENDED. NO NEW ORDERS AT THIS TIME.
[2019-07-16 08:32] VITALS: BP 121/87
--- NOTE | 2019-07-16 09:35 | NUR ---
PT RECEIVING KUB AT THIS TIME.
--- NOTE | 2019-07-16 09:46 | NUR ---
SCHEDULED MEDS GIVEN AND TOLERATED WELL. PT IS TACHYCARDIC, HR 110. SCHEDULED COREG GIVEN. KUB HAS BEEN COMPLETED. PT DENIES C/P, GENERAL PAIN AND DISCOMFORT AT THIS TIME. CALL LIGHT WITHIN REACH.
--- NOTE | 2019-07-16 10:08 | NUR ---
X-RAY ABDOMEN COMPLETED.
--- NOTE | 2019-07-16 10:55 | NUR ---
SCHEDULED MED GIVEN AND TOLERATED WELL. PT SITTING UP AT BEDSIDE. SOB NOTED. PT IS S/P BREATHING TX. CHANELLE CANCHOLA, EQUIPMENT VALIDATION ENGINEER MADE AWARE OF CHRONIC SOB. CALL LIGHT WITHIN REACH.
[2019-07-16 12:03] VITALS: BP 149/97
--- NOTE | 2019-07-16 12:20 | NUR ---
MADE CHANELLE CANCHOLA NP AWARE THAT PT'S O2 SAT IS 85% ON N/C 2LPM AND THAT R/T HAS BEEN CALLED AND STATED THEY WILL ASSESS THE PT. PT IN HIGH FOWLERS WITH OXYGEN IN PLACE. CALL LIGHT WITHIN REACH. WILL CONTINUE TO MONITOR.
--- NOTE | 2019-07-16 13:11 | NUR ---
LACTULOSE GIVEN FOR CONSTIPATION. PT EDUCATED TO DRINK PLENTY OF FLUIDS AND INCREASE ACTIVITY WHEN ABLE. PT VERBALIZED UNDERSTANDING. SCHEDULED MEDS GIVEN AND TOLERATED WELL. PT DENIES PAIN AT THIS TIME. N/C AT 2LPM IN PLACE. CALL LIGHT WITHIN REACH.
--- NOTE | 2019-07-16 15:49 | NUR ---
PT IS CONTINUALLY ANXIOUS AND SOB THROUGH OUT THE DAY. REPORTED TO CHANELLE CANCHOLA NP. RECEIVED ORDER FOR ATIVAN 0.5MG IV Q 6 HOURS PRN. ORDER NOTED AND CARRIED OUT. PT MADE AWARE.
[2019-07-16 16:21] VITALS: BP 123/84
--- NOTE | 2019-07-16 16:41 | NUR ---
PT ANXIOUS AND SOB. ABG ORDERED BY R/T. ABG RESULTS SHOW NO SIGNIFICANT FINDINGS. ATIVAN 0.5MG IVP GIVEN FOR ANXIETY. TYLENOL 65OMG PO GIVEN FOR C/P AND UPPER BACK PAIN. RAC IV CATH PULLED OUT. SITE WNL. COVERED WITH GAUZE AND BANDAID. NEW IV CATH STARTED TO RFA ON FIRST ATTEMPT. COVERED WITH CDI OCCLUSIVE DRESSING. SITE WNL. SCHEDULED MEDS GIVEN AND TOLERATED WELL. PT IS SLEEPING NOW, RESP EVEN AND UNLABORED. WILL CONTINUE TO MONITOR.
--- NOTE | 2019-07-16 18:12 | NUR ---
PT IS AAOX4. SLEEPING AT THIS TIME BUT EASILY AROUSABLE. NO DISTRESS NOTED. PT HAS O2 N/C AT 2LPM IN PLACE. TELE [address] READING NSR. IV CATH TO RFA, SITE WNL, N/S LOCKED. CALL LIGHT WITHIN REACH. FALL PROTOCOL MAINTAINED. BED IN LOWEST POSITION.
--- NOTE | 2019-07-16 19:10 | NUR ---
PT IS PANICKING AND STATING THAT HE DYING, WITH SOB AND DECREASED O2 SAT TO 90%. RECEIVED ORDER FROM CHANELLE CANCHOLA NP TO D/C ATIVAN IV 0.5 MG Q6 HOURS AND NEW ORDER FOR ATIVAN 0.5MG IVP Q 4 HOURS. ORDERS NOTED AND CARRIED OUT. ATIVAN 0.5 MG IVP GIVEN. PT IS CALMER AND O2 SAT IS 95% ON 2 LPM N/C. WILL ENDORSE TO NOC SHIFT RN. CALL LIGHT IN PLACE.
--- NOTE | 2019-07-16 19:40 | NUR ---
RECEIEVED PT FROM AM NURSE. PT SITTING UP IN BED. PT AAOX4, AABLE TO MAKE NEEDS KNOWN. ON TELE#[address] HR 105. PALPABLE PULSES TO ALL EXTREMETIES. NO EDEMA NOTED. EXPIRATORY WHEEZE NOTED. SOB NOTED. BREATHING EVEN AND LABORED ON 2L NC. O2 SAT AT 85%, RT AT BED SIDE. PT ABOT TO RECEIVED BREATHING TREATMENT. FIXED NC, O2 SAT UP AT 92%. ABD ROUND AND DISTENDED, ACTIVE BS X4 QUAD. DENIES N/V/D. C/O CONSTIPATION. VOIDS FREELY, ON URINAL. GENERALIZED WEAKNESS. AMBULATORY. ECHYMOSIS TO SRINI WINKLER. IV TO RFA FLUSHING WELL. SITE WNL. BED AT LOWEST SETTING. SIDE RAILS X2 UP. CALL LIGHT WITHING REACH. WILL CONT TO MONITOR.
--- NOTE | 2019-07-16 20:29 | NUR ---
SCHEDULED TX NOT GIVEN AT THIS TIME PT WAS GIVEN 10ML OF ALBUTEROL AND PULMICORT DUE TO RESP. DISTRESS WILL CONTINUE WITH SCHEDULED TX NEXT ROUND.
[2019-07-16 20:36] VITALS: BP 109/76
--- NOTE | 2019-07-17 00:15 | NUR ---
PT PUT ON BIPAP PER AT RT AT THIS TIME. PT TOLERATING WELL. NO ACUTE DISTRESS NOTED. WILL CONT TO MONITOR.
--- NOTE | 2019-07-17 00:17 | NUR ---
PT HAD FIVE BEATS OF V-TACH, PT ASYMPTOMATIC, AAOX4, VS 109/74, 101, 20, 98% ON BIPAP. DR CURRAN MADE AWAKE. NO NEW ORDERS RECEIVED. WILL CONT TO MONITOR.
--- NOTE | 2019-07-17 01:42 | NUR ---
HR 180, PT RESPONDING TO COMMANDS. PT SEEMS ON DISTRESS, BREATHING LABORED AND UNEVEN. VS 135/94, 180, 24 O2 SAT 94% ON 2L NC. CALLED DR CURRAN AND MADE HER AWARE OF PT STATUS. DR IN THE ROOM. ATIVAN GIVEN PER NOV. SOLUMEDROL GIVEN PER ORDER. PT CURRENT VS 110/80, 112, 96% ON 2L NC. PT SEEMS CALMER. PER DR WILL PUT PT BACK ON BIPAP. WILL CONT TO MONITOR.
[2019-07-17 04:54] VITALS: BP 99/74
[2019-07-17 06:22] LABS: CALCIUM 8.3 mg/dL (8.5-10.1); CARBON DIOXIDE 26.4 mmol/L (21-32); CREATININE SERUM 2.7 mg/dL (0.7-1.3)
[2019-07-17 06:25] LABS: IRON 21 ug/dL (65-170); TOTAL IRON BINDING CAPACITY 356 ug/dL (250-450)
[2019-07-17 06:31] LABS: BASOPHIL % 0.1 % (0-2); PLATELET COUNT 205 x10^3mcL (130-400); RED CELL DISTRIBUTION WIDTH 14.1 % (11.5-14.5)
--- NOTE | 2019-07-17 07:13 | NUR ---
PT REFUSED TO PUT ON BIPAP, HE IS ON 2L NC AT THIS TIME. O2 SAT AT 98%. SOB NOTED. PT ANXIOUS, MEDICATED WITH PRN ATIVAN PER NOV. BUN OF [address] CURRAN. NO NEW ORDERS RECEIVED. PT RESTING IN BED AT THIS TIME. ALL NEEDS ASSESSED AND ATTENDED TO. BED AT LOWEST SETTING. SIDE RAILS X2 UP. CALL LIGHT WITHING REACH. CARE ENDORSED TO AM NURSE JULIANA.
--- NOTE | 2019-07-17 07:30 | NUR ---
RECEIVED PT FROM COMPUTER SCIENCE TEACHER RN. Jill/KYLE. TELE#7. DENIES CHEST PAIN/PRESSURE. RESPIRATIONS EQUAL AND LABORED ON 2L NC. DENIES SOB. PT SEEMS ANXIOUS, PT CONSTANTLY MOVING IN BED. ENCOURAGED PT TO KEEP HOB ELEVATED TO HELP WITH BREATHING. PT REFUSED. ABDOMEN ROUND AND FIRM, PT DENIES ANY ABDOMINAL PAIN, PT DENIES ANY N/V. ASKED PT IF HE FEELS CONSTIPATED, PT STATES NO. WILL CONTINUE TO MONITOR. CALL LIGHT IN REACH. BED IN LOWEST POSITION.
--- NOTE | 2019-07-17 08:10 | NUR ---
FOUND PT ON 2L NC AND IN DISTRESS USING ACCESSORY MUSCLES SPO2: 79%. PLACED PT ON BIPAP 08/19 RR:16 30%. PT TOLERATING BIPAP WELL. SPO2:98% HR:101. CHANELLE AND LILIANE AWARE. PT STATES RELIEF. HHNTX GIVEN INLINE. WILL CONT.TO MONITOR
[2019-07-17 08:50] VITALS: BP 106/74
--- NOTE | 2019-07-17 10:07 | NUR ---
PT SITTING UP IN BED. PT ON BIPAP. PT UPSET. PT STATES "I CANT REACH MY WATER." BIPAP REMOVED, PT PLACED ON 2L NC. PT SOB. PT UPSET. PT STATES "I WANT TO LEAVE. I HAVENT BEEN TREATED WELL HERE. I WANT TO GO HOME." TRIED TO EXPLAIN TO PT THE IMPORTANCE OF STAYING. PT STATES " I DONT CARE. I JUST WANT TO SIGN MYSELF OUT." CHANELLE COOL ROOFING INSTALLER MADE AWARE. CHANELLE COOL ROOFING INSTALLER AT BEDSIDE, EXPLAINING TO PT IMPORTANCE OF STAYING IN HOSPITAL. PT STILL WANTED TO SIGN OUT AGAINST MEDICAL ADVICE. PT SIGNED AMA FORM. TELE#7 RETURNED TO INVOICING MACHINE OPERATOR KENNETH. IV TO RFA REMOVED CATHETER INTACT. CHANELLE AT BEDSIDE AGAIN, ASKING PT IF HE STILL WANTS TO SIGN OUT AGAINST MEDICAL ADVICE PT STATES "YES I JUST WANT TO LEAVE." PT MADE AWARE OF ALL RISK INCLUDED . PT VERBALIZED UNDERSTANDING. PT CALLED FAMILY MEMBER AND TOLD FAMILY MEMBER "PICK ME UP. I AM LEAVING THE HOSPITAL. I AM BETTER." PT TAKEN OFF FLOOR VIA WHEELCHAIR. NO PROBLEMS ENCOUNTERED.
--- NOTE | 2019-07-17 10:18 | NUR ---
NO BIPAP CHECK DUE TO PT LEAVING AMA.
--- NOTE | 2019-07-18 08:06 | NUR ---
ECHOCARDIOGRAM NOT DONE-DISCHARGED
== END 2019-07-17 10:34 | disposition left against medical advice (07) | DRG 291 ==
LOC: ED 09:57 → DU 12:00
PROVIDERS: Emergency Medicine; Internal Medicine Nephrology; ADMIT Internal Medicine
DX: I13.0 Hypertensive heart and chronic kidney disease with heart failure and stage 1 through stage 4 chronic kidney disease, or unspecified chronic kidney disease (principal); I50.23 Acute on chronic systolic (congestive) heart failure; J96.01 Acute respiratory failure with hypoxia; J44.1 Chronic obstructive pulmonary disease with (acute) exacerbation; F15.288 Other stimulant dependence with other stimulant-induced disorder; I42.9 Cardiomyopathy, unspecified; I25.10 Atherosclerotic heart disease of native coronary artery without angina pectoris; E11.22 Type 2 diabetes mellitus with diabetic chronic kidney disease; N18.9 Chronic kidney disease, unspecified; F12.21 Cannabis dependence, in remission; F15.21 Other stimulant dependence, in remission; E78.5 Hyperlipidemia, unspecified; Z87.891 Personal history of nicotine dependence; Z95.5 Presence of coronary angioplasty implant and graft; Z79.82 Long term (current) use of aspirin; Z79.84 Long term (current) use of oral hypoglycemic drugs; Z90.79 Acquired absence of other genital organ(s)
CPT/HCPCS: 36600; 82962; 83880; 90732; 94150; C9113; G0378; J0456; J0696; J1940; J2060; J2920; J2930; J7040; J7050; J7613; J7620; J7626; J7644; Q0092